=== PATIENT | male | born 1960 | race Caucasian/White ===

== ENCOUNTER → 2017-06-12 | Outpatient (CLI) | payer OTHER ==
[~2017-06-12] MED LIST: ALPR1TAB7 PO; FERR1TAB65 PO; ISOS30TA11 PO; METO-391 PO; MONT10TA24 PO
== END | disposition home or self-care (01) ==
LOC: OIH 12:45
PROVIDERS: ATTEND Internal Medicine Cardiovascular Disease
DX: Z13.6 Encounter for screening for cardiovascular disorders (principal); K44.9 Diaphragmatic hernia without obstruction or gangrene
CPT/HCPCS: 75571